=== PATIENT | male | born 1960 | race Caucasian/White ===

== ENCOUNTER 2023-08-12 13:04 | Emergency (ER) | payer OTHER ==
--- NOTE | 2023-08-12 13:46 | ED ---
Fall HPI - General Chief Complaint: Fall Stated Complaint: facial trauma Time Seen by Provider: 08/12/23 13:23 Source: patient, RN notes reviewed Mode of arrival: EMS Limitations: no limitations - History of Present Illness Initial Comments: This is a 62-year-old male who presents to the emergency department for a fall. States that he was on a walk at the park today with his senior care and because of the heat and the long walk, he lost his balance and fell several times. He fell face forward and the most recent time he went into a picnic table. States that he chipped his front teeth. This also caused a laceration to his chin and bottom lip. Not taking any blood thinners. Denies any loss of consciousness. States that he also has pain over the left knee, which took a large impact. MD Complaint: fall - Related Data Allergies Allergy/AdvReac Type Severity Reaction Status Date / Time haloperidol [From Haldol] AdvReac Anaphylaxis Verified 08/12/23 13:11 Review of Systems ROS Statement: Those systems with pertinent positive or pertinent negative responses have been documented in the HPI. ROS Other: All systems not noted in ROS Statement are negative. Past Medical History Past Medical History: Hypertension History of Any Multi-Drug Resistant Organisms: None Reported Past Surgical History: Cholecystectomy, Tonsillectomy Past Psychological History: Bipolar Smoking Status: Current every day smoker Past Alcohol Use History: None Reported Past Drug Use History: None Reported General Exam Limitations: no limitations General appearance: alert, in no apparent distress Head exam: Present: other (Superficial laceration to the bottom lip with 2 deeper lacerations underneath the bottom lip. Active bleeding.) Eye exam: Present: normal appearance, PERRL, EOMI. Absent: scleral icterus, conjunctival injection, periorbital swelling Respiratory exam: Present: normal lung sounds bilaterally. Absent: respiratory distress, wheezes, rales, rhonchi, stridor Cardiovascular Exam: Present: regular rate, normal rhythm, normal heart sounds. Absent: systolic murmur, diastolic murmur, rubs, gallop, clicks Extremities exam: Present: other (Swelling, tenderness, and ecchymosis over the left knee. Full range of motion. 2+ DP and PT pulses.) Neurological exam: Present: alert, oriented X3, CN II-XII intact Psychiatric exam: Present: normal affect, normal mood Course Vital Signs 08/12/23 08/12/23 13:06 15:21 Temperature 98.6 F 98.1 F Pulse Rate 72 82 Respiratory 16 18 Rate Blood Pressure 138/79 148/84 O2 Sat by Pulse 95 99 Oximetry Procedures - Laceration Laceration #1 Consent Obtained: verbal consent Indication: laceration Site: face Size (cm): 4 Description: linear Depth: simple, single layer Anesthetic Used: lidocaine 1% Anesthesia Technique: local infiltration Amount (mls): 3 Pre-repair: wound explored, irrigated extensively Type of Sutures: nylon Size of Sutures: 5-0 Technique: simple, interrupted Laceration #2 Consent Obtained: verbal consent Indication: laceration Site: face Size (cm): 2 Description: linear Depth: simple, single layer Anesthetic Used: lidocaine 1% Anesthesia Technique: local infiltration Amount (mls): 3 Pre-repair: wound explored, irrigated extensively Type of Sutures: nylon Size of Sutures: 5-0 Technique: simple, interrupted Medical Decision Making - Medical Decision Making This is a 62-year-old male who presents to the emergency department for a fall. Was pt. sent in by a medical professional or institution? @ -No Did you speak to anyone other than the patient for history? @ -No Did you review nursing and triage notes? @ -Yes, and I agree, it is accurate with regards to the patient's symptoms. Were old charts reviewed? @ -No Differential Diagnosis? @ -Differential Diagnosis Head Injury: Contusion, hematoma, intracranial hemorrhage, skull fracture, whiplash, concussion, this is not meant to be an all-inclusive list. EKG interpreted by me (3pts min.)? @ -Not obtained X-rays interpreted by me (1pt min.)? @ -Chest x-ray obtained, my interpretation identifies no localized consolidations or infiltrates. X-ray of the left knee obtained. My interpretation identifies soft tissue swelling. CT interpreted by me (1pt min.)? @ -Computed tomography scan of the brain and c-spine obtained. My interpretation identifies no evidence of an acute intracranial hemorrhage, skull fracture, or cervical spine fracture. My interpretation of the CT scan of the facial bones identifies no facial fractures. U/S interpreted by me (1pt. min.)? @ -Not obtained What testing was considered but not performed? (CT, X-rays, U/S, labs)? Why? @ -We discussed an EKG, lab work, and IV fluids for the suspected dehydration. Patient however refused as he states that he did not want to do that and wanted to leave. What meds were considered but not given? Why? @ -Not obtained Did you discuss the management of the patient with other professionals? @ -No Did you reconcile home meds? @ -No Was smoking cessation discussed for >3mins.? @ -I discussed smoking cessation for greater than 3 minutes. The risk of smoking were discussed with the patient including but not limited to risks of cancer, stroke, coronary artery disease and COPD. Also discussed with patient were multiple methods of quitting smoking. Lastly we discussed the financial cost of smoking. Was critical care preformed (if so, how long)? @ -No Were there social determinants of health that impacted care today? How? (Homelessness, low income, unemployed, alcoholism, drug addiction, transportation, low edu. Level, literacy, decrease access to med. care, [facility] [facility], rehab)? @ -No Was there de-escalation of care discussed even if they declined? (Discuss DNR or withdrawal of care, Hospice)? @ -No What co-morbidities impacted this encounter? (DM, HTN, Smoking, COPD, CAD, Cancer, CVA, Hep., AIDS, mental health diagnosis, sleep apnea, morbid obesity)? @ -HTN, smoking Was patient admitted / discharged? @ -Discharged. CT scan of the brain and C-spine obtained revealing no acute process. CT scan of the facial bones demonstrates a radiopaque foreign body in the subcutaneous tissues to the right anterior mandible apex. This was a piece of the patient's tooth that had chipped off. This was removed and the wound was thoroughly irrigated. There were 2 lacerations that were closed with sutures. He did have a superficial laceration on the bottom lip that did not require repair. Chest x-ray reveals no acute process. X-ray of the left knee demonstrates a small curvilinear ossific density seen adjacent to the medial femoral condyle that could reflect a small avulsion fracture. Patient was put in a knee immobilizer. Given the heat and with his legs giving out on him I did recommend an EKG, blood work, and IV fluids, however patient refused. He is advised to return in 7 to 10 days for suture removal, alternate with ibuprofen and Tylenol as needed for pain relief, and follow-up with orthopedics regarding the possible avulsion fracture. Also advised follow-up with the dentist regarding the chipped teeth. Patient discharged home in stable condition with senior care staff members. Undiagnosed new problem with uncertain prognosis? @ -None Drug Therapy requiring intensive monitoring for toxicity (Heparin, Nitro, Insulin, Cardizem)? @ -None Were any procedures done? @ -Laceration repair with sutures Diagnosis/symptom? @ -Fall, avulsion fracture to the left knee, lacerations, head injury Acute, or Chronic, or Acute on Chronic? @ -Acute Uncomplicated (without systemic symptoms) or Complicated (systemic symptoms)? @ -Uncomplicated Side effects of treatment? @ -None Exacerbation, Progression, or Severe Exacerbation] @ -Not applicable Poses a threat to life or bodily function? @ -No Return precautions reviewed in depth, the patient is instructed to return to the emergency department with any new, worsening, or concerning symptoms. Patient verbalized understanding. This case was discussed in detail with the attending ED physician, Dr. Bernal. Presentation, findings, and treatment plan discussed in detail as well. - Radiology Data Radiology results: report reviewed, image reviewed Disposition Clinical Impression: Fall, Laceration, Head injury, Left patella fracture Disposition: HOME SELF-CARE Instructions (If sedation given, give patient instructions): Care For Your Stitches (ED), Patellar Fracture (ED) Additional Instructions: Return to the emergency department with any new, worsening, or concerning symptoms and in 7-10 days for removal of the stitches. Alternate with ibuprofen and Tylenol as needed for pain relief. Apply ice to the left knee and keep it elevated. Contact the orthopedic provider listed below for a follow-up appointment and let them know that you were seen in the emergency department and found to have a potential fracture in the knee. Follow up with your primary care provider in 1-2 days. Also follow-up with a dentist regarding the broken teeth. Is patient prescribed a controlled substance at d/c from ED?: No Referrals: None,Stated [Primary Care Provider] - 1-2 days Kelvin Sanchez MD [STAFF PHYSICIAN] - 1-2 days Time of Disposition: 14:57
[2023-08-12] MEDS: DIPH,PERTUS(ACELL)TETVAC-LF 0.5 ML VIAL IM ONE (14:14)
[2023-08-12] MEDS: LIDOCAINE 1% INJ 10MG/ML (20 ML MDV) SQ ONE (14:14)
--- NOTE | 2023-08-12 14:39 | CT ---
EXAMINATION TYPE: CT brain george wo con DATE OF EXAM: 08/12/2023 COMPARISON: None HISTORY: Fall, facial swelling CT DLP: 1237.3 mGycm, Automated exposure control for dose reduction was used. CONTRAST: None CT of the brain is performed utilizing 3 mm thick sections through the posterior fossa and 3 mm thick sections through the remaining calvarium. Study is performed within 24 hours of arrival to the hospital. No abnormal hyperdensity is present to suggest an acute intracranial hemorrhage. No mass lesion is evident. No acute infarcts are evident. Ventricles and sulci are mildly prominent for the patient age. There is opacification of the bilateral maxillary sinuses. Some associated mucus may be present bilat erally with slight increased density. Follow-up is recommended. Remaining paranasal sinuses and masto id air cells are clear. IMPRESSIONS: 1. Mild atrophy. 2. Opacified maxillary sinuses with some more focal increased density within the paranasal sinuses. T his can be related to inspissated mucus. Follow-up for chronic sinusitis is recommended. CT cervical spine. COMPARISON: None CT of the cervical spine is performed in the axial plane at 2 mm thick sections. Reconstructed image s in the coronal, and sagittal plane are reviewed on the computer. No acute fractures are evident. Vertebral body alignment is normal. There is narrowing of the C5-6 disc height. Remaining disc heights are preserved. Vertebral body heights are preserved. No spinal canal stenosis is evident. Uncovertebral joint hypertrophy is contributory to the foraminal stenosis on the left C6-7 bilaterall y C5-6 and to a mild degree C4-5 IMPRESSION: 1. Chronic degenerative disc changes C5-6. 2. Foraminal stenosis. C5-6 discussed above
--- NOTE | 2023-08-12 14:40 | XR ---
EXAMINATION TYPE: XR knee complete LT DATE OF EXAM: 08/12/2023 CLINICAL HISTORY: pain TECHNIQUE: Three views of the left knee are obtained. COMPARISON: None. FINDINGS: Small curvilinear ossific density seen adjacent to the medial femoral condyle could reflect a small avulsion fracture. Correlate clinically. Prepatellar soft tissue swelling noted. No addition al fractures are identified. The tri-compartment joint spaces appear within normal limits. The overl ramon soft tissue appears unremarkable. IMPRESSION: Small curvilinear ossific density seen adjacent to the medial femoral condyle could reflect a small a vulsion fracture. Correlate clinically.
--- NOTE | 2023-08-12 14:41 | XR ---
EXAMINATION TYPE: XR chest 2V DATE OF EXAM: 08/12/2023 COMPARISON: NONE HISTORY: Shortness of breath TECHNIQUE: Frontal and lateral views of the chest are obtained. FINDINGS: Scattered senescent parenchymal changes noted. No evidence for infiltrate. No evidence for atelectasis. Heart size is stable. Mediastinal structures are stable and grossly unremarkable. No evidence for hilar prominence. Degenerative changes dorsal spine. IMPRESSION: 1. No evidence for acute pulmonary disease.
--- NOTE | 2023-08-12 14:46 | CT ---
EXAMINATION TYPE: CT facial bones wo con DATE OF EXAM: 08/12/2023 COMPARISON: None HISTORY: Fall, facial swelling CT DLP: 801.7 mGycm CONTRAST: 0 mL of Isovue 300 The paranasal sinuses are examined in the axial plane at 2 mm thick sections. Reconstructed images i n the coronal plane were obtained. There is dental amalgam scatter artifact. Anterior to the right apex of the mandible is a radiopaque foreign body measuring approximately 3 mm. This appears present adjacent to an open wound Maxillary sinuses are largely opacified. The ethmoid air cells are clear. The sphenoid sinuses are clear. The frontal sinuses are clear. The septum is evaluated. There is anterior septal deviation to the left. No acute fractures evident. Greater wings of the sphenoid are intact. Frontal bone is intact. Zygomat ic arches are intact. Maxillary spine and nasal bones appear normal IMPRESSION: 1. Radiopaque foreign body within the subcutaneous tissues right anterior mandible apex. 2. No acute fractures evident. 3. Opacified bilateral maxillary sinuses
[2023-08-12] MEDS: SODIUM CHLORIDE 0.9% 1,000 ML IV STA (15:21)
[2023-08-12 15:23] VITALS: BP 148/84; PULSE 82; RESP 18; TEMP 98.1
== END 2023-08-12 15:24 | disposition home or self-care (01) ==
LOC: EC 13:04
DX: S82.002A Unspecified fracture of left patella, initial encounter for closed fracture (principal); S01.81XA Laceration without foreign body of other part of head, initial encounter; S01.511A Laceration without foreign body of lip, initial encounter; I10 Essential (primary) hypertension; F17.200 Nicotine dependence, unspecified, uncomplicated; Z23 Encounter for immunization; Z88.8 Allergy status to other drugs, medicaments and biological substances; W18.39XA Other fall on same level, initial encounter; Y92.830 Public park as the place of occurrence of the external cause; Y93.01 Activity, walking, marching and hiking
CPT/HCPCS: 73562; 71046; 72125; 70486; 70450; 90715; 99406; 12014; 99284; 90471; L1830 ×2; J2001